=== PATIENT | male | born 1950 | race Hispanic/Latino ===

== ENCOUNTER 2016-06-27 12:03 | Outpatient (CLI) | payer MEDICARE, OTHER ==
--- NOTE | 2016-06-27 14:20 | Cat Scan Report ---
CT of the abdomen and pelvis without contrast. History: Renal calculus. Findings: The liver, spleen, and pancreas are normal. The gallbladder is unremarkable. There are 3 nonobstructive stones in the right kidney, the largest of which measures 5 mm and the smaller measures 3 mm and 2 mm in diameter. There is no hydronephrosis. The left kidney is normal. Minimal perinephric stranding is present bilaterally. The prostate is enlarged with multiple calcifications, unchanged from the previous study in March of 2014. There are multiple diverticuli in the left colon with no radiographic evidence of diverticulitis. There is no evidence of appendicitis. There are no suspicious bony findings. Impression: 2 right renal stones are noted without obstruction. The bilateral perinephric stranding is probably chronic. 2. Stable prostatic enlargement with calcifications.
== END 2016-06-27 12:04 | disposition home or self-care (01) ==
LOC: CT 12:03
PROVIDERS: ATTEND Urology
DX: N20.0 Calculus of kidney (principal); N40.0 Benign prostatic hyperplasia without lower urinary tract symptoms; K57.30 Diverticulosis of large intestine without perforation or abscess without bleeding; N28.89 Other specified disorders of kidney and ureter
CPT/HCPCS: 74176